=== PATIENT | female | born 1985 | race Hispanic/Latino ===

== ENCOUNTER 2018-09-16 17:58 | Emergency (ER) | payer MEDICAID ==
--- NOTE | 2018-09-16 18:44 | Event Note ---
ED Screening Note Date of service: 09/16/18 Time: 18:40 ED Screening Note: This is a 33 y.o. F. that presents to the ER with swelling to BLE edema and hands 5-7 days. Patient have cast to bilateral wrist. Patient missed her appointment for removal last month with [facility] in [place]. Patient is at anchor and taking detox meds. This initial assessment/diagnostic orders/clinical plan/treatment(s) is/are subject to change based on patients health status, clinical progression and re-assessment by fellow clinical providers in the ED. Further treatment and workup at subsequent clinical providers discretion. Patient/guardian urged not to elope from the ED as their condition may be serious if not clinically assessed and managed. Initial orders include: labs
[2018-09-16 19:58] LABS: Basophils % (Auto) 0.4 % (0.0-1.8); Eosinophils # (Auto) 0.3 K/mm3 (0.0-0.4); Eosinophils % (Auto) 4.3 % (0.0-4.3); Hematocrit 38.9 % (30.3-42.9); Hemoglobin 13.4 gm/dl (10.1-14.3); Lymphocytes # (Auto) 2.8 K/mm3 (1.2-5.4); Lymphocytes % (Auto) 40.6 % (13.4-35.0); Mean Corpuscular HGB Conc 34 % (30-34); Mean Corpuscular Volume 90 fl (79-97); Monocytes # (Auto) 0.6 K/mm3 (0.0-0.8); Monocytes % (Auto) 8.7 % (0.0-7.3); Platelet Count 314 K/mm3 (140-440); Red Blood Count 4.32 M/mm3 (3.65-5.03); Red Cell Distribution Width 13.3 % (13.2-15.2)
[2018-09-16 20:29] LABS: Alanine Aminotransferase 24 units/L (7-56); Albumin 4.3 g/dL (3.9-5); BUN/Creatinine Ratio 13; Blood Urea Nitrogen 8 mg/dL (7-17); Calcium 10.3 mg/dL (8.4-10.2); Hemolysis Index 4
--- NOTE | 2018-09-16 20:54 | Emergency Department Report ---
ED General Adult HPI - General Chief complaint: Extremity Problem,Nontraumatic Stated complaint: HANDS SWELLING/PAIN Time Seen by Provider: 09/16/18 18:39 Source: patient Mode of arrival: Ambulatory Limitations: No Limitations - History of Present Illness Initial comments: This is a 33 y.o. F. that presents to the ER with swelling to BLE edema and hands 5-7 days. pt s/p orif bilat wrist after fracture 8 weeks ago. Denies new fall injury or trauma. Patient missed her appointment for removal last month with [facility] in [place]. Patient is at anchor and taking detox meds. states musculoskeletal pain at 8/10 aching generalized with mild swelling no numbness no tingling Onset/Timin -: days(s) Location: upper extremity, lower extremity Radiation: extremity Severity scale (0 -10): 3 Quality: aching Consistency: intermittent Improves with: rest Worsens with: other (weight bearing ) Associated Symptoms: denies: chest pain, cough, fever/chills, shortness of breath, syncope, weakness - Related Data Home Medications Medication Instructions Recorded Confirmed Last Taken Lurasidone HCl [Latuda] 20 mg PO DAILY 12/03/15 12/03/15 Unknown Suboxone 4 mg-1 mg SL Film 4 mg PO DAILY 12/03/15 12/03/15 Unknown busPIRone [Buspar] 10 mg PO QID 12/03/15 12/03/15 Unknown Previous Rx's Medication Instructions Recorded Last Taken Type Fluconazole [Diflucan TAB] 150 mg PO ONCE #1 tablet 12/03/15 Unknown Rx Nitrofurantoin [place]/M-Cryst 100 mg PO Q12HR #20 capsule 12/03/15 Unknown Rx [Macrobid CAP] Potassium Chloride [K-Dur] 10 meq PO QDAY #10 tablet 12/03/15 Unknown Rx Ibuprofen [Motrin 800 MG tab] 800 mg PO Q8HR PRN #30 tablet 09/16/18 Unknown Rx Allergies Allergy/AdvReac Type Severity Reaction Status Date / Time cephalexin monohydrate Allergy Vomiting Verified 12/03/15 08:02 [From Keflex] doxycycline Allergy Vomiting Verified 12/03/15 08:02 sulfacetamide sodium Allergy Anaphylaxis Verified 12/03/15 08:02 [From Sulfamide] ED Review of Systems ROS: Stated complaint: HANDS SWELLING/PAIN Other details as noted in HPI Constitutional: denies: chills, fever Eyes: denies: eye pain, eye discharge, vision change ENT: denies: ear pain, throat pain Respiratory: denies: cough, shortness of breath, wheezing Cardiovascular: denies: chest pain, palpitations Endocrine: no symptoms reported Gastrointestinal: denies: abdominal pain, nausea, diarrhea Genitourinary: denies: urgency, dysuria, discharge Musculoskeletal: other (extrem pain ) Skin: denies: rash, lesions Neurological: denies: headache, weakness, paresthesias, vertigo Psychiatric: denies: anxiety, depression Hematological/Lymphatic: denies: easy bleeding, easy bruising ED Past Medical Hx - Past Medical History Previous Medical History?: No Additional medical history: SVT ablasion x2 [id number] - Surgical History Additional Surgical History: ovarian cyst removed - Social History Smoking Status: Current Every Day Smoker Substance Use Type: Prescribed - Medications Home Medications: Home Medications Medication Instructions Recorded Confirmed Last Taken Type Fluconazole [Diflucan TAB] 150 mg PO ONCE #1 tablet 12/03/15 Unknown Rx Lurasidone HCl [Latuda] 20 mg PO DAILY 12/03/15 12/03/15 Unknown History Nitrofurantoin [place]/M-Cryst 100 mg PO Q12HR #20 capsule 12/03/15 Unknown Rx [Macrobid CAP] Potassium Chloride [K-Dur] 10 meq PO QDAY #10 tablet 12/03/15 Unknown Rx Suboxone 4 mg-1 mg SL Film 4 mg PO DAILY 12/03/15 12/03/15 Unknown History busPIRone [Buspar] 10 mg PO QID 12/03/15 12/03/15 Unknown History Ibuprofen [Motrin 800 MG tab] 800 mg PO Q8HR PRN #30 tablet 09/16/18 Unknown Rx ED Physical Exam - General Limitations: No Limitations General appearance: alert, in no apparent distress - Head Head exam: Present: atraumatic, normocephalic - Eye Eye exam: Present: normal appearance, PERRL, EOMI Pupils: Present: normal accommodation - ENT ENT exam: Present: normal orophraynx, mucous membranes moist, TM's normal bilaterally, normal external ear exam - Neck Neck exam: Present: normal inspection, full ROM. Absent: tenderness, meningismus, lymphadenopathy, thyromegaly - Respiratory Respiratory exam: Present: normal lung sounds bilaterally. Absent: respiratory distress, wheezes, stridor, chest wall tenderness - Cardiovascular Cardiovascular Exam: Present: regular rate, normal rhythm, normal heart sounds. Absent: systolic murmur, diastolic murmur, rubs, gallop - GI/Abdominal GI/Abdominal exam: Present: soft, normal bowel sounds. Absent: distended, tenderness, bruit, hernia - Rectal Rectal exam: Present: deferred - Extremities Exam Extremities exam: Present: full ROM, normal capillary refill, other (mild hand and ankle swelling no pitting edema ). Absent: tenderness, joint swelling, calf tenderness - Back Exam Back exam: Present: normal inspection, full ROM. Absent: tenderness, CVA tenderness (R), CVA tenderness (L), muscle spasm, paraspinal tenderness, vertebral tenderness, rash noted - Neurological Exam Neurological exam: Present: alert, oriented X3, CN II-XII intact, normal gait, reflexes normal. Absent: motor sensory deficit - Psychiatric Psychiatric exam: Present: normal affect, normal mood - Skin Skin exam: Present: warm, dry, intact, normal color. Absent: rash ED Course Vital Signs 09/16/18 18:40 Temperature 98.2 F Pulse Rate 101 H Respiratory 16 Rate Blood Pressure 93/60 O2 Sat by Pulse 95 Oximetry ED Medical Decision Making - Lab Data Result diagrams: 09/16/18 19:07 09/16/18 19:07 Labs 09/16/18 09/16/18 09/16/18 19:07 19:07 21:50 WBC 6.8 RBC 4.32 Hgb 13.4 Hct 38.9 MCV 90 MCH 31 MCHC 34 RDW 13.3 Plt Count 314 Lymph % (Auto) 40.6 H [place] % (Auto) 8.7 H Eos % (Auto) 4.3 Baso % (Auto) 0.4 Lymph # 2.8 [place] # 0.6 Eos # 0.3 Baso # 0.0 Seg Neutrophils % 46.0 Seg Neutrophils # 3.1 Sodium 140 Potassium 4.2 Chloride 102.9 Carbon Dioxide 30 Anion Gap 11 BUN 8 Creatinine 0.6 L Estimated GFR > 60 BUN/Creatinine Ratio 13 Glucose 86 Calcium 10.3 H Total Bilirubin 0.30 AST 22 ALT 24 Alkaline Phosphatase 81 NT-Pro-B Natriuret Pep 12.73 Total Protein 6.7 Albumin 4.3 Albumin/Globulin Ratio 1.8 Urine Color Yellow Urine Turbidity Clear Urine pH 6.0 Ur Specific [place] 1.012 Urine Protein <15 mg/dl Urine Glucose (UA) Neg Urine Ketones Neg Urine Blood Sm Urine Nitrite Neg Urine Bilirubin Neg Urine Urobilinogen < 2.0 Ur Leukocyte Esterase Neg Urine WBC (Auto) 1.0 Urine RBC (Auto) 2.0 U Epithel Cells (Auto) 1.0 Urine Mucus Few Urine HCG, Qual 09/16/18 21:50 WBC RBC Hgb Hct MCV MCH MCHC RDW Plt Count Lymph % (Auto) [place] % (Auto) Eos % (Auto) Baso % (Auto) Lymph # [place] # Eos # Baso # Seg Neutrophils % Seg Neutrophils # Sodium Potassium Chloride Carbon Dioxide Anion Gap BUN Creatinine Estimated GFR BUN/Creatinine Ratio Glucose Calcium Total Bilirubin AST ALT Alkaline Phosphatase NT-Pro-B Natriuret Pep Total Protein Albumin Albumin/Globulin Ratio Urine Color Urine Turbidity Urine pH Ur Specific [place] Urine Protein Urine Glucose (UA) Urine Ketones Urine Blood Urine Nitrite Urine Bilirubin Urine Urobilinogen Ur Leukocyte Esterase Urine WBC (Auto) Urine RBC (Auto) U Epithel Cells (Auto) Urine Mucus Urine HCG, Qual Negative - Medical Decision Making splints checked spacing is appropriate, [employer] <3 sec bilat, labs normal , plan dc to self with rx for ibuprofen prn pain , pt will follow up with ortho for in 2-3 dfays fgiven referral to same, pt remains ambulatory with steady gait distal pulses + 2, there is no sob no cp Critical care attestation.: If time is entered above; I have spent that time in minutes in the direct care of this critically ill patient, excluding procedure time. ED Disposition Clinical Impression: Wrist strain Qualifiers: Encounter type: sequela Laterality: unspecified laterality Qualified Code(s): S66.919S - Strain of unspecified muscle, fascia and tendon at wrist and hand level, unspecified hand, sequela Disposition: DC-01 TO HOME OR SELFCARE Is pt being admited?: No Does the pt Need Aspirin: No Condition: Stable Instructions: Splint Care (ED) Prescriptions: Ibuprofen [Motrin 800 MG tab] 800 mg PO Q8HR PRN #30 tablet PRN Reason: pain swelling Referrals: JAKE ALMAGUER MD [Staff Physician] - 3-5 Days Forms: Work/School Release Form(ED) Time of Disposition: 23:24
[2018-09-16] MEDS ORDERED: IBUPROFEN PO ONE (21:06)
[2018-09-16 23:06] LABS: HCG Qualitative,Urine Negative (Negative)
[2018-09-16 23:08] LABS: Bilirubin,Urine NEG (Negative); Blood,Urine SM (Negative); Color,Urine Yellow (Yellow); Mucus,Urine FEW /HPF; Protein,Urine <15 mg/dL mg/dL (Negative); Urobilinogen,Urine < 2.0 mg/dL (<2.0)
[2018-09-17 01:24] VITALS: BP 132/78
== END 2018-09-17 | disposition home or self-care (01) ==
LOC: ED 17:58
DX: S66.912A Strain of unspecified muscle, fascia and tendon at wrist and hand level, left hand, initial encounter (principal); S66.911A Strain of unspecified muscle, fascia and tendon at wrist and hand level, right hand, initial encounter; F17.200 Nicotine dependence, unspecified, uncomplicated; Z79.899 Other long term (current) drug therapy; Z88.1 Allergy status to other antibiotic agents; Z88.2 Allergy status to sulfonamides; Z88.8 Allergy status to other drugs, medicaments and biological substances; X58.XXXA Exposure to other specified factors, initial encounter; Y93.89 Activity, other specified; Y92.89 Other specified places as the place of occurrence of the external cause; Y99.8 Other external cause status
CPT/HCPCS: 36415; 80053; 81001; 81025; 83880; 85025; 99283